=== PATIENT | female | born 1990 | race Two or more races ===

== ENCOUNTER 2021-05-09 05:05 | Emergency (ER) | payer MEDICAID ==
[~2021-05-09] VITALS: Ht 142.2 cm; Wt 55.3 kg
[2021-05-09] MEDS ORDERED: SODIUM CHLORIDE 0.9% 500 ML IVB ONE (07:00)
[2021-05-09] MEDS ORDERED: SODIUM CHLORIDE 0.9% 1,000 ML IV ONE (07:00)
[2021-05-09] MEDS ORDERED: cefTRIAXone 1GM/50ML D5W 50 ML IV ONE ×2 (07:00→12:45)
[2021-05-09] MEDS ORDERED: METOCLOPRAMIDE HCL 5MG/ml INJ 2ml VIAL IV ONE (07:00)
[2021-05-09] MEDS ORDERED: MORPHINE SULFATE 4 MG/ML SYR/VIAL IV ONE (07:00)
[2021-05-09 07:59] LABS: Basophils # (auto) 0.1 10 ^3/uL (0-0.2); Eosinophils # (auto) 0.8 10 ^3/uL (0-0.8); Eosinophils % (auto) 10.2 % (0.0-7.0); Hematocrit 34.5 % (36.0-46.0); Hemoglobin 11.5 g/dL (12.2-16.2); Lymphocytes # (auto) 2.9 10 ^3/uL (0.4-5.4); Lymphocytes % (auto) 37.4 % (10.0-50.0); Mean Corpuscular Hemoglobin 27.9 pg (28.0-32.0); Mean Corpuscular Hgb Conc. 33.3 g/dL (32.0-36.0); Mean Corpuscular Volume 83.9 fL (80.0-100.0); Monocytes # (auto) 0.6 10 ^3/uL (0-1.3); Monocytes % (auto) 7.3 % (0.0-12.0); Neutrophils # (auto) 3.4 10 ^3/uL (1.6-8.6); Neutrophils % (auto) 44.1 % (37.0-80.0); Nucleated Red Blood Cells % 0.1 %; Red Blood Cells 4.12 10^6/uL (4.0-5.20); Red Cell Distribution Width 15.9 % (11.8-14.3); White Blood Cell 7.7 10^3/uL (4.4-10.8)
[2021-05-09 08:17] LABS: Albumin 2.9 g/dL (3.4-5.0); Calcium 8.7 mg/dL (8.5-10.1); Magnesium 2.2 mg/dL (1.6-2.6); Potassium 3.9 mmol/L (3.5-5.1)
[2021-05-09 08:20] LABS: Bilirubin, Total 0.2 mg/dL (0.2-1.0); Total Protein 7.1 g/dL (6.4-8.2)
[2021-05-09] MEDS ORDERED: IOHEXOL 300 MG/ML 100ML BOTTLE IJ ONE (08:40)
[2021-05-09 11:26] LABS: Urine WBC None Seen /hpf (0 - 5)
[2021-05-09 11:59] LABS: Urine Bacteria NONE SEEN /hpf (None Seen); Urine Blood 3+ /uL (Negative)
[2021-05-09 12:18] LABS: Urine Specific Gravity > 1.050 (1.001-1.035)
[2021-05-09 13:18] VITALS: BP 153/96
== END 2021-05-09 13:36 | disposition home or self-care (01) ==
LOC: EDBD 05:05 → ER 05:05
DX: Z48.01 Encounter for change or removal of surgical wound dressing (principal); E46 Unspecified protein-calorie malnutrition; Z68.27 Body mass index [BMI] 27.0-27.9, adult; Z90.49 Acquired absence of other specified parts of digestive tract
CPT/HCPCS: 36415; 74177; 80053; 81001; 83690; 83735; 85025; 96361; 96365; 96375; 99285; J0696; J2270; J2765; J7030; J7040; Q9967

== ENCOUNTER 2024-10-09 13:54 | Inpatient (IN) | payer MEDICAID, OTHER ==
[~2024-10-09] VITALS: Ht 167.6 cm; Wt 60.0 kg
--- NOTE | 2024-10-09 14:14 | ED.PDOC ---
HPI (NEURO) HPI Comments 34 year old female CANDICE presents to the ED with chief complaint of headache. 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 EMS relays that the patient soon after experienced a sharp, 10/10 headache to the back of her head with associated ear ringing, nausea, and vomiting. EMS states patient continues to experience her headache at this time and patient's accucheck was 124 and BP at 130s systolically. Patient denies any numbness, weakness, chest pain, SOB, blurred vision, or hearing loss. Chief Complaint: Headache Time Seen by MD: 14:09 Primary Care Provider: SUJATHA Lehman Notes: Nurses Notes, I&C Tech Notes, Medications, Allergies Information Source: Patient, Emergency Med Personnel Mode of Arrival: EMS Severity: Moderate Dizziness/Weakness Severity: Unable to do activities Headache Severity: Severe Timing: Hours Duration: Since onset Prehospital treatment: None Headache Quality: Sharp Headache Location: Occipital Weakness Location: Generalized Onset: At rest Circumstances: Spontaneous Symptoms: Vertigo, Weakness After: Headache History of: None Modifying factors: Nothing Associated Signs and Symptoms: Headache, Nausea, Vomiting, Weakness Past Medical History PAST MEDICAL HISTORY: Anemia Surgical History: Cholecystectomy, WIC SITE COORDINATOR History: No Pertinent WIC SITE COORDINATOR History Family History Family History: Unobtainable Social History Smoker: Non-Smoker Alcohol: Occasionally Drugs: Marijuana Lives In: Home Constitutional: reports: weakness; denies: chills, diaphoresis, fatigue, fever, malaise, sweats, others EENTM: reports: ear ringing; denies: blurred vision, double vision, ear blee ding, ear discharge, ear drainage, ear pain, eye pain, eye redness, hearing loss, mouth pain, mouth swelling, nasal discharge, nose bleeding, nose congestion, nose pain, photophobia, tearing, throat pain, throat swelling, voice changes, others Respiratory: denies: cough, hemoptysis, orthopnea, SOB at rest, shortness of breath, SOB with excertion, stridor, wheezing, others Cardiovascular: denies: chest pain, dizzy spells, diaphoresis, Dyspnea on exertion, edema, irregular heart beat, left arm pain, lightheadedness, palpitations, PND, syncope, others Gastrointestinal: reports: nausea, vomiting; denies: abdomen distended, abdominal pain, blood streaked bowels, constipated, diarrhea, dysphagia, difficulty swallowing, hematemesis, melena, poor appetite, poor fluid intake, rectal bleeding, rectal pain, others Genitourinary: denies: abnormal vagina bleeding, burning, dyspareunia, dysuria, flank pain, frequency, hematuria, incontinence, pain, , vagina discharge, urgency, others Neurological: reports: dizziness, headache; denies: fainting, left sided numbness, left sided weakness, numbness, paresthesia, pre-existing deficit, right sided numbness, right sided weakness, seizure, speech problems, tingling, tremors, weakness, others Musculoskeletal: denies: back pain, gout, joint pain, joint swelling, muscle pain, muscle stiffness, neck pain, others Integumetry: denies: bruises, change in color, change in hair/nails, dryness, laceration, lesions, lumps, rash, wounds, others Allergic/Immunocompromised: denies: Difficulty Healing, Frequent Infections, Hives, Itching, others Hematologic/Lymphatic: denies: anemia, blood clots, easy bleeding, easy bruising, swollen glands, others Endocrine: denies: excessive hunger, excessive sweating, excessive thirst, excessive urination, flushing, intolerance to cold, intolerance to heat, unexplained weight gain, unexplained weight loss, others Psychiatric: denies: anxiety, bipolar disorder, depression, hopeless, panic disorder, schizophrenia, sleepless, suicidal, others All Other Systems: Reviewed and Negative Physical Exam General Appearance: Moderate Distress HEENT: Normal ENT Inspection, Pharynx Normal, TMs Normal Neck: Full Range of Motion, Non-Tender, Normal, Normal Inspection Respiratory: Chest Non-Tender, Lungs Clear, No Accessory Muscle Use, No Respiratory Distress, Normal Breath Sounds Cardiovascular: No Edema, No JVD, No Murmur, No Gallop, Normal Peripheral Pulses, Regular Rate/Rhythm Breast Exam: Deferred Gastrointestinal: No Organomegaly, Non Tender, No Pulsatile Mass, Normal Bowel Sounds, Soft Genitalia: Deferred Pelvic: Deferred Rectal: Deferred Extremities: No calf tenderness, Normal capillary refill, Normal inspection, Normal range of motion, Non-tender, No pedal edema Musculoskeletal : Apperance: Normal Neurologic: Alert, staking technician II-XII nml as Tested, Motor Weakness, Normal Affect, Normal Mood, No Sensory Deficits Cerebellar Function: Normal Reflexes: Normal Skin: Dry, Normal Color, Warm Lymphatic: No Adenopathy EKG EKG : Pulse Rate (adult): 88 [place]: Normal Cardiac Rhythm: NSR Block: None Hypertrophy: None ST: Normal Was a procedure done? Was a procedure done?: No Differential Diagnosis (SZ) Seizure: CVA/TIA, Other (Pulmonary embolism) General Weakness: Anemia Headache: Migraine X-Ray, Labs, Meds, VS Vital Signs Date Time Temp Pulse Resp B/P (MAP) Pulse Ox O2 Delivery O2 Flow Rate FiO2 10/09/24 16:08 98.3 88 18 137/99 (112) 98 98.3 10/09/24 15:53 88 10/09/24 15:24 Room Air* 0 21 10/09/24 15:05 99.4 102 15 147/86 (106) 99 99.4 10/09/24 15:05 102 15 99 Room Air 10/09/24 14:06 97.6 110 16 134/92 (106) 96 Lab Test 10/09/24 14:30 Range/Units White Blood Count 6.7 4.4-10.8 10^3/uL Red Blood Count 4.62 4.0-5.20 10^6/uL Hemoglobin 13.2 12.2-16.2 g/dL Hematocrit 39.3 36.0-46.0 % Mean Corpuscular Volume 85.1 80.0-100.0 fL Mean Corpuscular Hemoglobin 28.7 28.0-32.0 pg Mean Corpuscular Hemoglobin Concent 33.7 32.0-36.0 g/dL Red Cell Distribution Width 16.7 H 11.8-14.3 % Platelet Count 233 140-450 10^3/uL Mean Platelet Volume 9.0 6.9-10.8 fL Neutrophils (%) (Auto) 80.4 H 37.0-80.0 % Lymphocytes (%) (Auto) 4.9 L 10.0-50.0 % Monocytes (%) (Auto) 14.4 H 0.0-12.0 % Eosinophils (%) (Auto) 0.1 0.0-7.0 % Basophils (%) (Auto) 0.2 0.0-2.0 % Neutrophils # (Auto) 5.4 1.6-8.6 10 ^3/uL Lymphocytes # (Auto) 0.3 L 0.4-5.4 10 ^3/uL Monocytes # (Auto) 1.0 0-1.3 10 ^3/uL Eosinophils # (Auto) 0 0-0.8 10 ^3/uL Basophils # (Auto) 0 0-0.2 10 ^3/uL Nucleated Red Blood Cells 0.1 % D-Dimer, Quantitative 0.35 0.0-0.49 mg/L FEU Sodium Level 136 136-145 mmol/L Potassium Level 3.5 3.5-5.1 mmol/L Chloride Level 105 98-107 mmol/L Carbon Dioxide Level 23 20-31 mmol/L Anion Gap 8 5-15 Blood Urea Nitrogen < 5 L 9-23 mg/dL Creatinine 0.64 0.550-1.02 mg/dL Glomerular Filtration Rate Calc 120 >90 mL/min BUN/Creatinine Ratio 7.8 L 10.0-20.0 Serum Glucose 94 74-106 mg/dL Calcium Level 9.9 8.7-10.4 mg/dL Troponin I High Sensitivity < 3 L </=34 ng/L Current Medications Medications (Trade) Dose Ordered Sig/Duane Route Start Time Stop Time Status Last Admin Sodium Chloride 500 ml @ 500 mls/hr Q1H ONCE IV 10/09/24 14:15 10/09/24 15:14 DC 10/09/24 15:07 Ondansetron HCl (Zofran) 4 mg ONCE ONCE IV 10/09/24 14:15 10/09/24 14:24 DC 10/09/24 15:45 Acetaminophen/ Hydrocodone Bitart ([place] 10/325MG Tab) 1 tab ONCE ONCE PO 10/09/24 15:45 10/09/24 15:46 DC 10/09/24 15:45 Lorazepam (Ativan Inj) 1 mg ONCE ONCE IV 10/09/24 16:15 10/09/24 16:16 DC 10/09/24 16:12 CT scan of the head is negative The patient was given normal saline at a bolus of 500 cc The patient was complaining of some pain and nausea so the patient was given Zofran 4 mg IV push for the nausea The patient was also given [place] 10/325 for the pain The patient was given Ativan 1 mg IV push The troponin level is negative The chemistry panel is within normal limits The D-dimer is within normal limits The CBC is within normal limits At this time, the patient was being admitted to the hospitalist. The patient understands and agrees with the management. Images Reviewed?: Images reviewed and evaluated by me Time of 1ST Reevaluation: 17:35 Reevaluation 1ST: Unchanged Patient Education/Counseling: Diagnosis, Treatment, Prognosis Family Education/Counseling: No Family Present Additional Information -Reviewed patient's previous visit(s): 05/09/21 for s/p - The following tests were ordered, and results were reviewed by me: BMP, CBC, UA - Additional information was gathered from interviewing the following independent Historian: EMS - I reviewed and agreed with the following test results read by other provider: None - I discussed treatments and results with medical personnel and: patient Comprehensive systems review obtained and negative except for what is stated in the HPI. Departure 1 Departure Time of Disposition: 17:35 Impression: Primary Impression: Acute chest pain Additional Impressions: Generalized weakness Intractable headache Qualified Codes: R51.9 - Headache, unspecified Disposition: ADMITTED INPATIENT Admit to: Tele Condition: Fair Critical Care Note Critical Care Time?: No Stability Stability form required: No Heart Score Heart Score: Heart Score Response (Comments) Value History N/A 0 EKG N/A 0 Age N/A 0 Risk Factors N/A 0 Troponin N/A 0 Total 0 I personally scribed for NAVDEEP MANZO MD ([email or web address]) on 10/09/24 at 14:14. Electronically submitted by Adelfo Abdi ([email or web address]). I personally scribed for NAVDEEP MANZO MD ([email or web address]) on 10/09/24 at 15:53. Electronically submitted by Adelfo Abdi ([email or web address]). NAVDEEP MANZO MD Oct 09, 2024 14:14
[2024-10-09 14:46] LABS: Basophils # (auto) 0 10 ^3/uL (0-0.2); Basophils % (auto) 0.2 % (0.0-2.0); Eosinophils # (auto) 0 10 ^3/uL (0-0.8); Eosinophils % (auto) 0.1 % (0.0-7.0); Hematocrit 39.3 % (36.0-46.0); Hemoglobin 13.2 g/dL (12.2-16.2); Lymphocytes # (auto) 0.3 10 ^3/uL (0.4-5.4); Lymphocytes % (auto) 4.9 % (10.0-50.0); Mean Corpuscular Hemoglobin 28.7 pg (28.0-32.0); Mean Corpuscular Hgb Conc. 33.7 g/dL (32.0-36.0); Mean Corpuscular Volume 85.1 fL (80.0-100.0); Monocytes % (auto) 14.4 % (0.0-12.0); Neutrophils # (auto) 5.4 10 ^3/uL (1.6-8.6); Neutrophils % (auto) 80.4 % (37.0-80.0); Nucleated Red Blood Cells % 0.1 %; Platelet Count (auto) 233 10^3/uL (140-450); Red Blood Cells 4.62 10^6/uL (4.0-5.20); Red Cell Distribution Width 16.7 % (11.8-14.3); White Blood Cell 6.7 10^3/uL (4.4-10.8)
[2024-10-09 15:01] LABS: Chloride 105 mmol/L (98-107); Potassium 3.5 mmol/L (3.5-5.1); Sodium 136 mmol/L (136-145)
[2024-10-09 15:02] LABS: Anion Gap 8 (5-15); Carbon Dioxide 23 mmol/L (20-31)
[2024-10-09 15:03] LABS: Calcium 9.9 mg/dL (8.7-10.4)
[2024-10-09 15:07] LABS: Glucose 94 mg/dL (74-106)
[2024-10-09] MEDS: SODIUM CHLORIDE 0.9% 500 ML IV ONE (15:07)
[2024-10-09 15:08] LABS: BUN/Creatinine Ratio 7.8 (10.0-20.0); Blood Urea Nitrogen < 5 mg/dL (9-23)
--- NOTE | 2024-10-09 15:41 | DVH ---
EXAM: CT HEAD WITHOUT CONTRAST HISTORY: GRIMM COMPARISON: None TECHNIQUE: Axial images of the head were obtained and reformatted in coronal and sagittal planes. All CT scans at this medical facility are performed using dose modulation techniques as appropriate t o a performed exam including the following: Automated exposure control was utilized; adjustment of th e MA and/or KV according to patient size; and use of iterative reconstruction technique. CT Dose: CTDI volume is 55 mGy. Dose-length product is 982 mGy*cm FINDINGS: There is no evidence of acute intracranial hemorrhage, mass, mass effect midline shift. There is no h ydrocephalus or extra-axial fluid collection. Owen-white matter differentiation is maintained. The visualized paranasal sinuses and mastoid air cells are clear. The calvarium is intact. IMPRESSION: 1. No acute intracranial process. HS:Y
[2024-10-09] MEDS: ONDANSETRON HCL 4 MG/2 ML VIAL IV ONE (15:45)
[2024-10-09] MEDS: HYDROcodone-ACET 10/325MG TAB PO ONE (15:45)
--- NOTE | 2024-10-09 15:53 | ECG ---
[facility] Test Date: 2024-10-09 Test Time: 15:45:37 Pat Name: EMILIANO COOPER Department: ER Room: Gender: F Wire Har[employer] Design Engineer: SHILPA : 1990 Requested By: NAVDEEP MANZO Order Number: [id number] Reading MD: Measurements Intervals Mc[place]osh Rate: 88 P: 39 DC: 128 QRS: 35 QRSD: 81 T: 54 QT: 374 QTc: 453 Interpretive Statements Sinus rhythm Please click the below link to view image of tracing.
[2024-10-09] MEDS: MORPHINE SULFATE 4 MG/ML SYR/VIAL IV ONE (16:06)
[2024-10-09] MEDS: LORazepam 2MG/ML-1ML VIAL IV ONE (16:12)
[2024-10-09] MEDS ORDERED: SUMAtriptan SUCCINATE 25 MG TAB PO PRN (20:00)
[2024-10-09] MEDS ORDERED: TEMAZEPAM 15 MG CAP PO PRN (20:00)
--- NOTE | 2024-10-09 21:39 | DVHHP2 ---
History of Present Illness Reason for Visit: Headache History of Present Illness 34-year-old female presents for evaluation of a headache. Patient reports a one day history of developing a diffuse headache with associated nausea and vomiting. She also reports having intermittent episodes of left-sided chest tightness. She reports having intermittent blurred vision. Denies any other acute complaints at the moment. Past Medical History Anemia Past Surgical History and cholecystectomy Family History Noncontributory Smoke: No ALCOHOL: occassional Drugs: Marijuana Lives: with Family Review of Systems Review of Systems Review of systems are currently negative otherwise addressed in HPI. Allergies: Coded Allergies: NO KNOWN ALLERGIES (Unverified , 11/26/14) Medications Current Medications Medications Dose Ordered Sig/Duane Route Start Time Stop Time Status Last Admin Dose Admin Sumatriptan Succinate 50 mg Q2HP PRN PO 10/09/24 20:00 UNV Acetaminophen/ Hydrocodone Bitart 1 tab Q4HP PRN PO 10/09/24 20:00 UNV Temazepam 15 mg QHSP PRN PO 10/09/24 20:00 UNV Ondansetron HCl 4 mg Q4HP PRN IV 10/09/24 20:00 UNV Acetaminophen 650 mg Q6HP PRN PO 10/09/24 20:00 UNV Exam Vital Signs Vital Signs Date Time Temp Pulse Resp B/P (MAP) Pulse Ox O2 Delivery O2 Flow Rate FiO2 10/09/24 18:13 98.0 92 17 118/73 (88) 96 98.0 10/09/24 15:24 Room Air* 0 21 Exam Gen: 34-year-old female in mild distress Skin: Warm, dry, normal color and texture, no rash. HEENT: Normocephalic atraumatic, mucous membranes moist and pink. Neck: Cervical and supraclavicular nodes normal without enlargement, trachea is midline, thyroid gland is normal without masses. Pulmonary: Clear to auscultation and percussion bilaterally. Cardiac: Regular rate and rhythm. No murmur Abdomen: Soft, nontender, nondistended, bowel sounds present all 4 quadrants, no guarding, no rigidity, no organomegaly. Extremities: No cyanosis, clubbing, no edema Neuro: Cranial nerves II through XII grossly intact, normal affect and speech, no focal motor deficits. Labs/Xrays ORDERING PHYSICIAN: NAVDEEP MANZO MD PROCEDURE(s): HWOCT - HEAD WITHOUT CONTRAST REASON: GRIMM ORDER NUMBER(s): [id number], ACCESSION NUMBER(s): [id number] EXAM: CT HEAD WITHOUT CONTRAST HISTORY: GRIMM COMPARISON: None TECHNIQUE: Axial images of the head were obtained and reformatted in coronal and sagittal planes. All CT scans at this medical facility are performed using dose modulation techniques as appropriate to a performed exam including the following: Automated exposure control was utilized; adjustment of the MA and/or KV according to patient size; and use of iterative reconstruction technique. CT Dose: CTDI volume is 55 mGy. Dose-length product is 982 mGy*cm FINDINGS: There is no evidence of acute intracranial hemorrhage, mass, mass effect midline shift. There is no hydrocephalus or extra-axial fluid collection. Owen-white matter differentiation is maintained. The visualized paranasal sinuses and mastoid air cells are clear. The calvarium is intact. IMPRESSION: 1. No acute intracranial process. HS:Y ATED BY: CHARLY FIELD MD Labs Test 10/09/24 20:54 10/09/24 14:30 Range/Units White Blood Count 6.7 4.4-10.8 10^3/uL Red Blood Count 4.62 4.0-5.20 10^6/uL Hemoglobin 13.2 12.2-16.2 g/dL Hematocrit 39.3 36.0-46.0 % Mean Corpuscular Volume 85.1 80.0-100.0 fL Mean Corpuscular Hemoglobin 28.7 28.0-32.0 pg Mean Corpuscular Hemoglobin Concent 33.7 32.0-36.0 g/dL Red Cell Distribution Width 16.7 H 11.8-14.3 % Platelet Count 233 140-450 10^3/uL Mean Platelet Volume 9.0 6.9-10.8 fL Neutrophils (%) (Auto) 80.4 H 37.0-80.0 % Lymphocytes (%) (Auto) 4.9 L 10.0-50.0 % Monocytes (%) (Auto) 14.4 H 0.0-12.0 % Eosinophils (%) (Auto) 0.1 0.0-7.0 % Basophils (%) (Auto) 0.2 0.0-2.0 % Neutrophils # (Auto) 5.4 1.6-8.6 10 ^3/uL Lymphocytes # (Auto) 0.3 L 0.4-5.4 10 ^3/uL Monocytes # (Auto) 1.0 0-1.3 10 ^3/uL Eosinophils # (Auto) 0 0-0.8 10 ^3/uL Basophils # (Auto) 0 0-0.2 10 ^3/uL Nucleated Red Blood Cells 0.1 % D-Dimer, Quantitative 0.35 0.0-0.49 mg/L FEU Sodium Level 136 136-145 mmol/L Potassium Level 3.5 3.5-5.1 mmol/L Chloride Level 105 98-107 mmol/L Carbon Dioxide Level 23 20-31 mmol/L Anion Gap 8 5-15 Blood Urea Nitrogen < 5 L 9-23 mg/dL Creatinine 0.64 0.550-1.02 mg/dL Glomerular Filtration Rate Calc 120 >90 mL/min BUN/Creatinine Ratio 7.8 L 10.0-20.0 Serum Glucose 94 74-106 mg/dL Calcium Level 9.9 8.7-10.4 mg/dL Assessment/Plan Assessment/Plan Assessment Intractable headache Chest pain, etiology undetermined Plan Admit the patient to [facility] to the hospitalist Sumatriptan p.r.n. MRI of the brain pending Echocardiogram pending Continue treatment per orders. Plan discussed with: Patient My Orders Orders - NAIDA RUELAS AGACNP Procedure Category Date Status Time Urinalysis LAB 10/09/24 Logged 19:56 Sumatriptan Succinate PHA 10/09/24 Logged Tablet (Imitrex Ta 20:00 Brain Head Wo Contrast MRI 10/09/24 Logged 19:56 Basic Metabolic Panel LAB 10/10/24 Verified 04:00 Admit ADMIT 10/09/24 Transmitted 19:56 Hydrocodone-Acet PHA 10/09/24 Logged 5/325mg Tab (Yolyn 20:00 Temazepam (Restoril) PHA 10/09/24 Logged 20:00 Ondansetron Hcl PHA 10/09/24 Logged (Zofran) 20:00 Condition: Stable DEANNA 10/09/24 In Process 19:56 Acetaminophen Tablet PHA 10/09/24 Logged (Tylenol Tablet) 20:00 Bedrest With Bathroom DEANNA 10/09/24 In Process Privileg 19:56 Troponin-I Hs LAB 10/09/24 In Process 20:04 Date of Service: Oct 09, 2024 Billing Provider: NAIDA RUELAS Common Visit Codes: [id number] INP/OBS CARE (MOD) NAIDA RUELAS Oct 09, 2024 21:39
[2024-10-09 21:47] VITALS: BP 117/68; PULSE 86; RESP 18; TEMP 98.6; O2SAT 98
[2024-10-09] MEDS: ONDANSETRON HCL 4 MG/2 ML VIAL IV PRN (23:06)
[2024-10-09] MEDS: HYDROcodone-ACET 5/325MG TAB PO PRN (23:07)
[2024-10-10 00:21] VITALS: BP 115/66; PULSE 83; RESP 19; TEMP 97.3; O2SAT 97
[2024-10-10 00:30] VITALS: PULSE 83; RESP 19; O2SAT 97
[2024-10-10] MEDS ORDERED: FERR1TAB36 PO (00:31)
[2024-10-10 06:53] LABS: Chloride 106 mmol/L (98-107); Sodium 138 mmol/L (136-145)
[2024-10-10 06:54] LABS: Anion Gap 8 (5-15); Calcium 9.1 mg/dL (8.7-10.4); Carbon Dioxide 24 mmol/L (20-31)
[2024-10-10 06:59] LABS: BUN/Creatinine Ratio 8.9 (10.0-20.0); Glucose 94 mg/dL (74-106)
[2024-10-10 07:06] LABS: Blood Urea Nitrogen 5 mg/dL (9-23)
[2024-10-10 09:00] VITALS: BP 108/68; PULSE 66; RESP 18; TEMP 98.2; O2SAT 95
--- NOTE | 2024-10-10 09:17 | DVH ---
EXAM: MRI BRAIN HEAD WO CONTRAST HISTORY: headache COMPARISON: CT scan dated 10-23 TECHNIQUE: MRI was performed utilizing multiple appropriate imaging planes and pulse sequences. FINDINGS: SUPRATENTORIAL REGION: No evidence for acute ischemia or intracranial hemorrhage. POSTERIOR FOSSA: Unremarkable. BRAINSTEM: Unremarkable. SELLAR/SUPRASELLAR REGION: Unremarkable. VENTRICLES, CISTERNS, SULCI: Age-appropriate. ORBITS: Unremarkable. PARANASAL SINUSES: Unremarkable. MASTOID AIR CELLS: Unremarkable. VASCULATURE: Unremarkable. BONES/ SOFT TISSUES: Unremarkable. OTHER: None. IMPRESSION: 1. No acute intracranial process identified.
[2024-10-10] MEDS: ACETAMINOPHEN 325 MG TAB PO PRN (09:26)
[2024-10-10] MEDS: KETOROLAC TROMETH 30 MG/ML 1ML VIAL IV ONE (10:00)
[2024-10-10] MEDS ORDERED: SUMA100T15 PO (11:03)
[2024-10-10] MEDS ORDERED: IBUP-1456 PO (11:03)
[2024-10-10] MEDS ORDERED: ACET1CAP14 PO (11:03)
--- NOTE | 2024-10-10 11:38 | DVHDSRES ---
Discharge Summary Date of Admission Resident Creating Document: ERICA HAMMOND RESIDENT Oct 09, 2024 at 19:56 Date of Discharge: Oct 10, 2024 Admitting Diagnosis intractable headache Labs/Diagnostic Data: Laboratory Results Test 10/10/24 05:38 10/09/24 20:54 10/09/24 14:30 Sodium Level 138 mmol/L (136-145) Potassium Level 4.0 mmol/L (3.5-5.1) Chloride Level 106 mmol/L (98-107) Carbon Dioxide Level 24 mmol/L (20-31) Anion Gap 8 (5-15) Blood Urea Nitrogen 5 mg/dL (9-23) Creatinine 0.56 mg/dL (0.550-1.02) Glomerular Filtration Rate Calc 124 mL/min (>90) BUN/Creatinine Ratio 8.9 (10.0-20.0) Serum Glucose 94 mg/dL (74-106) Calcium Level 9.1 mg/dL (8.7-10.4) Troponin I High Sensitivity < 3 ng/L (</=34) White Blood Count 6.7 10^3/uL (4.4-10.8) Red Blood Count 4.62 10^6/uL (4.0-5.20) Hemoglobin 13.2 g/dL (12.2-16.2) Hematocrit 39.3 % (36.0-46.0) Mean Corpuscular Volume 85.1 fL (80.0-100.0) Mean Corpuscular Hemoglobin 28.7 pg (28.0-32.0) Mean Corpuscular Hemoglobin Concent 33.7 g/dL (32.0-36.0) Red Cell Distribution Width 16.7 % (11.8-14.3) Platelet Count 233 10^3/uL (140-450) Mean Platelet Volume 9.0 fL (6.9-10.8) Neutrophils (%) (Auto) 80.4 % (37.0-80.0) Lymphocytes (%) (Auto) 4.9 % (10.0-50.0) Monocytes (%) (Auto) 14.4 % (0.0-12.0) Eosinophils (%) (Auto) 0.1 % (0.0-7.0) Basophils (%) (Auto) 0.2 % (0.0-2.0) Neutrophils # (Auto) 5.4 10 ^3/uL (1.6-8.6) Lymphocytes # (Auto) 0.3 10 ^3/uL (0.4-5.4) Monocytes # (Auto) 1.0 10 ^3/uL (0-1.3) Eosinophils # (Auto) 0 10 ^3/uL (0-0.8) Basophils # (Auto) 0 10 ^3/uL (0-0.2) Nucleated Red Blood Cells 0.1 % D-Dimer, Quantitative 0.35 mg/L FEU (0.0-0.49) Other Laboratory Tests 10/10/24 05:38 10/09/24 14:30 Brief Hx & Hospital Course: A 34-year-old female with a history of anemia, , and cholecystectomy presented with a one-day history of a diffuse bitemporal headache associated with nausea, vomiting, and intermittent left-sided chest tightness. She was admitted for further evaluation and management of intractable headache and chest pain. ACS and PE were rule out. (trop and d dimer neg) Workup included a normal CT scan, brain MRI, and EKG. Treatment included sumatriptan, ondansetron, acetaminophen, and supportive care. The patient reported improvement in her headache symptoms, and no concerning findings were noted on imaging. Given the resolution of symptoms, she is deemed stable for discharge with ibuprofen, TID, and sumatriptan. She will follow up in the discharge clinic for further evaluation and echo results. Gen: 34-year-old female in mild distress Skin: Warm, dry, normal color and texture, no rash. HEENT: Normocephalic atraumatic, mucous membranes moist and pink. Neck: Cervical and supraclavicular nodes normal without enlargement, trachea is midline, thyroid gland is normal without masses. Pulmonary: Clear to auscultation and percussion bilaterally. Cardiac: Regular rate and rhythm. No murmur Abdomen: Soft, nontender, nondistended, bowel sounds present all 4 quadrants, no guarding, no rigidity, no organomegaly. Extremities: No cyanosis, clubbing, no edema Neuro: Cranial nerves II through XII grossly intact, normal affect and speech, no focal motor deficits. Case discussed with Dr Fontanez Operations or Procedures EXAM: CT HEAD WITHOUT CONTRAST HISTORY: GRIMM COMPARISON: None TECHNIQUE: Axial images of the head were obtained and reformatted in coronal and sagittal planes. All CT scans at this medical facility are performed using dose modulation techniques as appropriate to a performed exam including the following: Automated exposure control was utilized; adjustment of the MA and/or KV according to patient size; and use of iterative reconstruction technique. CT Dose: CTDI volume is 55 mGy. Dose-length product is 982 mGy*cm FINDINGS: There is no evidence of acute intracranial hemorrhage, mass, mass effect midline shift. There is no hydrocephalus or extra-axial fluid collection. Owen-white matter differentiation is maintained. The visualized paranasal sinuses and mastoid air cells are clear. The calvarium is intact. IMPRESSION: 1. No acute intracranial process. HS:Y : MRI BRAIN HEAD WO CONTRAST HISTORY: headache COMPARISON: CT scan dated 10-23 TECHNIQUE: MRI was performed utilizing multiple appropriate imaging planes and pulse sequences. FINDINGS: SUPRATENTORIAL REGION: No evidence for acute ischemia or intracranial hemorrhage. POSTERIOR FOSSA: Unremarkable. BRAINSTEM: Unremarkable. SELLAR/SUPRASELLAR REGION: Unremarkable. VENTRICLES, CISTERNS, SULCI: Age-appropriate. ORBITS: Unremarkable. PARANASAL SINUSES: Unremarkable. MASTOID AIR CELLS: Unremarkable. VASCULATURE: Unremarkable. BONES/ SOFT TISSUES: Unremarkable. OTHER: None. IMPRESSION: 1. No acute intracranial process identified. Condition at Discharge: Stable Final Diagnosis/Problems List #Intractable headache resolved #Possible migraines #stroke ruled out #Chest pain, possible musculoskeletal #ACS ruled out #PE ruled out Discharge Disposition: Home Discharge Instruct/Medications Diet: Regular Activity: No Restrictions, As Tolerated Follow Up/Referral: dc clinic for echo results and establish care Medications: see prescription Discharge Statement: "Patient was advised to return to the ER or call 911 if any headaches, dizziness, shortness of breath, chest pain, abdominal pain, bleeding, fevers, or worsening of medical condition. Patient was counseled about treatment plan, medications, possible side effects, patientverbalized understanding. All questions were answered to the best of my ability. This discharge took greater then 30 minutes in planning, reviewing documentation, counseling the patient, and discussing with other team members." ASSESSMENT ASSESSMENT Assessment migraine Date of Service: Oct 10, 2024 Billing Provider: ILAN FONTANEZ MD Common Visit Codes: [id number] INP/OBS CARE(HIGH) ERICA HAMMOND RESIDENT Oct 10, 2024 11:38 ILAN FONTANEZ MD Oct 10, 2024 22:11
[2024-10-10 12:02] VITALS: BP 100/55; PULSE 67; RESP 18; TEMP 98.6; O2SAT 95
[2024-10-10 13:00] VITALS: BP 100/55; PULSE 67; RESP 18; TEMP 98.6; O2SAT 95
== END 2024-10-10 14:00 | disposition home or self-care (01) | DRG 54 ==
LOC: ER 13:54 → EDBD 13:54 → OVERFLOW 19:56 → EAST 19:58
PROVIDERS: ADMIT Internal Medicine; ATTEND Emergency Medicine
DX: G43.909 Migraine, unspecified, not intractable, without status migrainosus (principal); D64.9 Anemia, unspecified; R07.89 Other chest pain; Z90.49 Acquired absence of other specified parts of digestive tract; Z98.891 History of uterine scar from previous surgery; Z79.1 Long term (current) use of non-steroidal anti-inflammatories (NSAID); Z79.891 Long term (current) use of opiate analgesic; Z79.899 Other long term (current) drug therapy
CPT/HCPCS: 36415; 70450; 70551; 80048; 84484; 85025; 85379; 93005; 93306; 96361; 96374; 96375; G0378; J2405